=== PATIENT | male | born 1995 | race Caucasian/White ===

== ENCOUNTER 2019-04-27 23:29 | Emergency (ER) | payer OTHER ==
--- NOTE | 2019-04-27 23:46 | PDOC ---
History of Present Illness - General Chief Complaint: Pain, Acute Stated Complaint: RT TESTICULAR PAIN Time Seen by Provider: 04/27/19 23:32 History Source: Patient Exam Limitations: No Limitations - History of Present Illness Initial Comments: 04/27/19 23:47 This is a 24-year-old male who comes in complaining of right-sided testicular pain x1 week. Patient saw his primary care doctor and was diagnosed with epididymitis and started on antibiotics. Patient said he is a sexual virgin and his symptoms are not improving with the antibiotics. Patient denies any penile discharge, penile lesions fevers or chills or any other concerns. Allergies: as per nursing notes Past Medical History: none Social history: Lives with family. No smoking. No alcohol. No illicit drugs. Surgical history: None General: No fevers or chills, no weakness, no weight loss HEENT: No change in vision. No sore throat,. No ear pain CardioVascular: no chest discomfort. No shortness of breath Respiratory:No cough, or wheezing. Gastrointestinal: no nausea, vomiting, diarrhea or constipation, No rectal bleeding Genitourinary: No dysuria, hematuria, or frequency, right testicular pain and swelling Musculoskeletal: No joint or muscle pain or swelling Neurologic: No headache, vertigo, dizziness or loss of consciousness Psychiatric: nor depression Skin: No rashes or easy bruising Endocrine: no increased thirst or abnormal weight change Allergic: no skin or latex allergy All other systems reviewed and normal GENERAL: The patient is awake, alert, and fully oriented, in no acute distress. HEAD: Normal with no signs of trauma. EYES: Pupils equal, round and reactive to light, extraocular movements intact, sclera anicteric, conjunctiva clear. EXTREMITIES:atraumatic, Normal range of motion, no edema. : Patient is a circumcised male. There is no penile lesions, there is no penile discharge. The right testicle has normal light with normal cremaster reflex however the right testicle has some tenderness and swelling on palpation. There is no palpable masses. There is no palpable lymphadenopathy of the groin. NEUROLOGICAL: Normal speech, normal gait. PSYCH: Normal mood, normal affect. SKIN: Warm, Dry, normal turgor, no rashes or lesions noted. Assessment and plan: This is 24-year-old male with right testicular pain and swelling. Patient has been on antibiotics for several days for a presumptive epididymitis diagnosed by his primary care doctor. Ultrasound of the scrotum ordered to rule out testicular torsion rule out testicular lesions. 03:00 Ultrasound showed epididymitis. And small varicocele and hydrocele bilateral otherwise normal no evidence of torsion. Patient told to continue his antibiotics given Motrin for the pain and discharged home. Past History - Past Medical History Allergies/Adverse Reactions: Allergies Allergy/AdvReac Type Severity Reaction Status Date / Time No Known Allergies Allergy Unverified 04/27/19 23:54 Home Medications: Ambulatory Orders Unobtainable 04/27/19 Discharge - Discharge Information Problems reviewed: Yes Clinical Impression/Diagnosis: Epididymitis Condition: Stable Disposition: HOME - Admission No - Follow up/Referral Referrals: ON STAFF,NOT [Primary Care Provider] - - Patient Discharge Instructions Patient Printed Discharge Instructions: DI for Epididymitis Additional Instructions: Tylenol or Motrin as needed for pain continue your antibiotics as prescribed. Return to the emergency department immediately with ANY new, persistent or worsening symptoms. Continue any medications as previously prescribed by your physician. You should follow up with your primary doctor as soon as possible regarding today's emergency department visit. . Please make sure your doctor reviews the results of your emergency evaluation. Thank you for coming to the Emergency Department today for your care. It was a pleasure to see you today. Please note that your evaluation is INCOMPLETE until you follow-up with your doctor.. - Post Discharge Activity Work/Back to School Note: Back to Work
[2019-04-27 23:56] VITALS: BP 149/99; PULSE 67; TEMP 97.5; BMI 26.1
== END 2019-04-28 02:39 | disposition home or self-care (01) ==
LOC: FER 23:29 → SUPCPDRO 23:29 → FER 04-28 02:39
DX: N45.1 Epididymitis (principal)
CPT/HCPCS: 76870-TC; 99281-25